=== PATIENT | female | born 1960 | race Caucasian/White ===

== ENCOUNTER 2020-11-08 11:22 | Emergency (ER) | payer SELFPAY ==
[~2020-11-08] VITALS: Ht 152.4 cm; Wt 62.0 kg
[2020-11-08 11:41] VITALS: BP 152/85
[2020-11-09] MEDS ORDERED: DOXY100T2 MT (09:05)
[2020-11-09] MEDS ORDERED: IBUP-2028 MT (09:05)
[2020-11-09] MEDS ORDERED: ACYC200C PO (09:07)
[2020-11-09] MEDS ORDERED: METR500T MT (09:07)
[2020-11-09] MEDS ORDERED: FLUC200T MT (09:08)
== END 2020-11-08 14:43 | disposition left against medical advice (07) ==
LOC: ER 11:22
DX: R51.9 Headache, unspecified (principal); Z53.21 Procedure and treatment not carried out due to patient leaving prior to being seen by health care provider

== ENCOUNTER 2020-11-09 08:16 | Emergency (ER) | payer OTHER, MEDICAID ==
[~2020-11-09] VITALS: Ht 152.4 cm; Wt 63.0 kg
[2020-11-09] MEDS ORDERED: DOXY100T2 MT (09:05)
[2020-11-09] MEDS ORDERED: IBUP-2028 MT (09:05)
[2020-11-09] MEDS ORDERED: METR500T MT (09:07)
[2020-11-09] MEDS ORDERED: ACYC200C PO (09:07)
[2020-11-09] MEDS ORDERED: FLUC200T MT (09:08)
[2020-11-09] MEDS ORDERED: IBUPROFEN 600MG TABLET PO ONE (09:15)
[2020-11-09] MEDS ORDERED: LIDOCAINE HCL 1% 20ML VIAL (Pyxis) INJ INFIL ONE (09:15)
[2020-11-09] MEDS ORDERED: CEFTRIAXONE SODIUM 500 MG/VIAL IM ONE (09:15)
[2020-11-09] MEDS ORDERED: FLUCONAZOLE 150MG TABLET PO ONE (09:15)
[2020-11-09 09:30] VITALS: BP 144/88
[2020-11-09] MEDS ORDERED: FLUCONAZOLE 150MG TABLET PO SCH (09:45)
[2020-11-11 08:07] LABS: NEISSERIA GONORRHOEAE NAA Negative (Negative)
== END 2020-11-09 10:02 | disposition home or self-care (01) ==
LOC: ER 08:16
DX: A60.09 Herpesviral infection of other urogenital tract (principal); B00.2 Herpesviral gingivostomatitis and pharyngotonsillitis; N76.0 Acute vaginitis; R03.0 Elevated blood-pressure reading, without diagnosis of hypertension; Z86.19 Personal history of other infectious and parasitic diseases
CPT/HCPCS: 87210; 87491; 87591; 96372; 99283; J0696; J3490; Z7610